=== PATIENT | female | born 1990 | race Caucasian/White ===

== ENCOUNTER 2019-04-07 15:24 | Emergency (ER) | payer OTHER ==
[~2019-04-07] VITALS: Ht 162.6 cm; Wt 59.0 kg
--- NOTE | 2019-04-07 15:28 | NUR ---
Called for triage not in the waiting room
[2019-04-07 15:37] VITALS: BP 115/81
--- NOTE | 2019-04-07 16:13 | NUR ---
Patient discharged to home in stable condition. Written and verbal after care instructions given. Patient verbalizes understanding of instruction.
== END 2019-04-07 16:14 | disposition home or self-care (01) ==
LOC: ER 15:29
DX: F90.9 Attention-deficit hyperactivity disorder, unspecified type (principal); Z76.0 Encounter for issue of repeat prescription